=== PATIENT | male | born 1955 | race Caucasian/White ===

== ENCOUNTER 2017-07-02 10:57 | Outpatient (RCR) | payer OTHER ==
[~2017-07-02 10:57] MED LIST: HYDROCODON-ACE1 EAC9 PO
== END 2017-07-04 ==
LOC: PT 10:57
PROVIDERS: ATTEND Specialist
DX: S46.021D Laceration of muscle(s) and tendon(s) of the rotator cuff of right shoulder, subsequent encounter (principal); M25.511 Pain in right shoulder; M62.81 Muscle weakness (generalized); Z47.89 Encounter for other orthopedic aftercare

== ENCOUNTER 2017-07-26 10:54 | Outpatient (RCR) | payer OTHER | END 2017-08-04 | LOC: PT 10:54 | PROVIDERS: ATTEND Specialist | DX: S46.021D Laceration of muscle(s) and tendon(s) of the rotator cuff of right shoulder, subsequent encounter (principal); Z47.89 Encounter for other orthopedic aftercare; M25.511 Pain in right shoulder; M62.81 Muscle weakness (generalized) ==

== ENCOUNTER 2020-11-28 13:49 | Outpatient (RCR) | payer MEDICARE | END 2020-12-02 | LOC: PT 13:49 | PROVIDERS: ATTEND Physician Assistant | DX: S46.012D Strain of muscle(s) and tendon(s) of the rotator cuff of left shoulder, subsequent encounter (principal) ==

== ENCOUNTER 2020-12-25 08:56 | Outpatient (RCR) | payer MEDICARE | END 2021-01-01 | LOC: PT 08:56 | PROVIDERS: ATTEND Physician Assistant | DX: S46.012D Strain of muscle(s) and tendon(s) of the rotator cuff of left shoulder, subsequent encounter (principal) | CPT/HCPCS: 97139 ==

== ENCOUNTER → 2021-04-14 | Day surgery (SDC) | payer MEDICARE, OTHER ==
[~2021-04-14] MED LIST changes: +ALLOPURINOL100 MG PO; +EPINEPHRINE 1 MG/ML 30ML VIAL ONE; +IRON; +MULTI-VITAMIN1 EACH PO; +SODIUM CHLORIDE 0.9% 50ML 50 ML ONE
[2021-04-14 13:40] VITALS: BP 145/97
== END | disposition home or self-care (01) ==
LOC: OR 07:46
PROVIDERS: ATTEND Specialist
DX: S46.012A Strain of muscle(s) and tendon(s) of the rotator cuff of left shoulder, initial encounter (principal); S46.212A Strain of muscle, fascia and tendon of other parts of biceps, left arm, initial encounter; S43.432A Superior glenoid labrum lesion of left shoulder, initial encounter; F17.210 Nicotine dependence, cigarettes, uncomplicated; W01.0XXA Fall on same level from slipping, tripping and stumbling without subsequent striking against object, initial encounter; W16.42XA Fall into unspecified water causing other injury, initial encounter; Z86.16 Personal history of COVID-19
CPT/HCPCS: 29827; C1713 ×2; J0690

== ENCOUNTER → 2021-07-04 | Outpatient (RCR) | payer MEDICARE ==
[~2021-07-04] MED LIST changes: -EPINEPHRINE 1 MG/ML 30ML VIAL ONE; -SODIUM CHLORIDE 0.9% 50ML 50 ML ONE
== END ==
LOC: PT 06-10 10:57
PROVIDERS: ATTEND Physician Assistant
DX: Z47.89 Encounter for other orthopedic aftercare (principal); S46.012D Strain of muscle(s) and tendon(s) of the rotator cuff of left shoulder, subsequent encounter; M25.512 Pain in left shoulder; M25.612 Stiffness of left shoulder, not elsewhere classified; M62.81 Muscle weakness (generalized)
CPT/HCPCS: 97139

== ENCOUNTER 2021-07-23 10:56 | Outpatient (RCR) | payer MEDICARE | END 2021-08-04 | LOC: PT 10:56 | PROVIDERS: ATTEND Physician Assistant | DX: Z47.89 Encounter for other orthopedic aftercare (principal); S46.012D Strain of muscle(s) and tendon(s) of the rotator cuff of left shoulder, subsequent encounter; M62.81 Muscle weakness (generalized) | CPT/HCPCS: 97139 ==

== ENCOUNTER → 2022-05-04 | Outpatient (RCR) | payer MEDICARE | LOC: PT 04-17 12:52 | PROVIDERS: ATTEND Orthopaedic Surgery Sports Medicine | DX: Z98.890 Other specified postprocedural states (principal); M25.512 Pain in left shoulder; M25.612 Stiffness of left shoulder, not elsewhere classified; M62.81 Muscle weakness (generalized) ==

== ENCOUNTER → 2022-06-03 | Outpatient (RCR) | payer MEDICARE | LOC: PT 05-06 08:02 | PROVIDERS: ATTEND Orthopaedic Surgery Sports Medicine | DX: Z98.890 Other specified postprocedural states (principal); M62.81 Muscle weakness (generalized); M25.512 Pain in left shoulder; M25.612 Stiffness of left shoulder, not elsewhere classified ==